=== PATIENT | female | born 1950 | race Caucasian/White ===

== ENCOUNTER 2017-06-21 06:07 | Day surgery (SDC) | payer MEDICARE ==
[~2017-06-21] VITALS: Ht 157.5 cm; Wt 127.2 kg
[2017-06-21 06:39] VITALS: BP 147/75
[2017-06-21] MEDS ORDERED: FERR-82 PO (07:19)
[2017-06-21] MEDS ORDERED: PEG15DRO4 OP (07:19)
[2017-06-21] MEDS ORDERED: NAPR220C15 PO (07:19)
[2017-06-21] MEDS ORDERED: FLUT9.9S NS (07:19)
[2017-06-21] MEDS ORDERED: ESCI10TA54 PO (07:19)
[2017-06-21] MEDS ORDERED: ASPI-555 PO (07:19)
[2017-06-21] MEDS ORDERED: METF500T6 PO (07:19)
[2017-06-21] MEDS ORDERED: LISI30TA4 PO (07:19)
[2017-06-21] MEDS ORDERED: BUDE10.22 IH (07:19)
[2017-06-21] MEDS ORDERED: CALC600T12 PO (07:19)
[2017-06-21] MEDS ORDERED: MONT10TA24 PO (07:19)
[2017-06-21] MEDS ORDERED: OMEP40CA37 PO (07:19)
[2017-06-21] MEDS ORDERED: MULT-1203 PO (07:19)
[2017-06-21] MEDS ORDERED: ACET-2743 PO (07:19)
[2017-06-21] MEDS ORDERED: CYAN250014 PO (07:19)
[2017-06-21] MEDS ORDERED: ATOR40TA71 PO (07:19)
[2017-06-21] MEDS ORDERED: pro air PO (07:19)
[2017-06-21] MEDS ORDERED: PROPOFOL 1000 MG/100 ML 100 ML IV ONE (07:25)
[2017-06-21] MEDS ORDERED: GLYCOPYRROLATE 0.2 MG/ML 5 ML VIAL ONE (07:25)
[2017-06-21] MEDS ORDERED: LIDOCAINE HCL 1% 20 ML VIAL ONE (07:25)
[2017-06-21 07:51] VITALS: BP 77/40
== END 2017-06-21 08:19 | disposition home or self-care (01) ==
LOC: DAH 06:07
PROVIDERS: ATTEND Internal Medicine Gastroenterology
DX: Z09 Encounter for follow-up examination after completed treatment for conditions other than malignant neoplasm (principal); K57.30 Diverticulosis of large intestine without perforation or abscess without bleeding; J44.9 Chronic obstructive pulmonary disease, unspecified; K21.9 Gastro-esophageal reflux disease without esophagitis; I10 Essential (primary) hypertension; E78.5 Hyperlipidemia, unspecified; E11.9 Type 2 diabetes mellitus without complications; M19.90 Unspecified osteoarthritis, unspecified site; D64.9 Anemia, unspecified; Z87.19 Personal history of other diseases of the digestive system; Z96.60 Presence of unspecified orthopedic joint implant; Z82.49 Family history of ischemic heart disease and other diseases of the circulatory system; Z83.3 Family history of diabetes mellitus; Z88.8 Allergy status to other drugs, medicaments and biological substances
CPT/HCPCS: 82948 ×2; 93005; A4606; G0105; J2704; J3490

== ENCOUNTER → 2017-11-16 | Outpatient (CLI) | payer MEDICARE ==
[~2017-11-16] MED LIST: ACET-2743 PO; ASPI-555 PO; ATOR40TA71 PO; BUDE10.22 IH; CALC600T12 PO; CYAN250014 PO; ESCI10TA54 PO; FERR-82 PO; FLUT9.9S NS; LISI30TA4 PO; METF500T6 PO; MONT10TA24 PO; MULT-1203 PO; NAPR220C15 PO; OMEP40CA37 PO; PEG15DRO4 OP; pro air PO
== END | disposition home or self-care (01) ==
LOC: RAH 08:19
PROVIDERS: ATTEND Family Medicine
DX: Z12.31 Encounter for screening mammogram for malignant neoplasm of breast (principal)
CPT/HCPCS: 77067

== ENCOUNTER → 2025-03-04 | Outpatient (CLI) | payer OTHER ==
[~2025-03-04] MED LIST changes: -ASPI-555 PO; +ASPI-556 PO; +CALC-1125 PO; -CALC600T12 PO; +ESCI-8 PO; -ESCI10TA54 PO; +METF-444 PO; -METF500T6 PO; +MONT-39 PO; -MONT10TA24 PO; +OMEP40CA21 PO; -OMEP40CA37 PO
--- NOTE | 2025-03-05 08:38 | HMCIMG ---
EXAM: CT Cardiac calcium scoring. CLINICAL HISTORY: Screening. TECHNIQUE: Thin collimated axial CT cardiac images were obtained. A CT scan is done according to ALARA (As Low As Reasonably Achievable). CONTRAST: None. COMPARISON: None provided. FINDINGS: Calcium Score: VESSEL Number of lesions Volume mm3 Equi. Mass/mg Calcium score LM 1 7.2 - 6.3 LAD 0 0.0 - 0.0 LCX 0 0.0 - 0.0 RCA 1 15.1 - 15.5 Total 2 22.3 - 21.8 IMPRESSION: The total calcium score is 21.8. 34th percentile. /[place]
== END | disposition home or self-care (01) ==
LOC: RAH 15:14
PROVIDERS: ATTEND Internal Medicine Cardiovascular Disease
DX: Z13.6 Encounter for screening for cardiovascular disorders (principal)
CPT/HCPCS: 75571